=== PATIENT | male | born 1950 | race Caucasian/White ===

== ENCOUNTER → 2018-01-26 | Outpatient (CLI) | payer MEDICARE, BC ==
[2018-01-26] MEDS: IOHEXOL 180 MG/ML 10 ML VIAL. IJ (09:34)
== END | disposition home or self-care (01) ==
LOC: RAD 08:26
DX: M43.16 Spondylolisthesis, lumbar region (principal); I10 Essential (primary) hypertension
CPT/HCPCS: 72132; 72265; Q9965

== ENCOUNTER → 2018-02-01 | Outpatient (CLI) | payer MEDICARE, BC ==
[2018-02-01 16:04] LABS: ADD MAN DIFF? NO
[2018-02-01 16:08] LABS: BASO % 0 % (0-3); EOS % 1 % (0-3); HEMATOCRIT 44.8 % (39.0-53.0); HEMOGLOBIN 14.9 g/dL (13.0-17.5); LYMPH # 1.3 x10^3/uL (1.0-4.8); LYMPH % 17 % (24-48); MEAN CORPUSCULAR HEMOGLOBIN 33 pg (25-35); MEAN CORPUSCULAR HGB CONC 33 g/dL (31-37); MEAN CORPUSCULAR VOLUME 98 fL (79-100); MONO # 0.8 x10^3/uL (0.0-1.1); MONO % 11 % (0-9); NEUT # 5.4 x10^3uL (1.8-7.7); NEUT % 71 % (31-73); PLATELET COUNT 378 x10^3/uL (140-400); RED BLOOD COUNT 4.59 x10^6/uL (4.30-5.70); RED CELL DISTRIBUTION WIDTH 13.7 % (11.5-14.5); WHITE BLOOD COUNT 7.6 x10^3/uL (4.0-11.0)
[2018-02-01 16:15] LABS: PARTIAL THROMBOPLASTIN TIME 30 SEC (24-38); PROTHROMBIN TIME PATIENT 12.2 SEC (11.7-14.0)
[2018-02-01 16:28] LABS: ALBUMIN 3.8 g/dL (3.4-5.0); ALBUMIN/GLOBULIN RATIO 1.2 (1.0-1.7); ALK PHOS 70 U/L (46-116); ALT (SGPT) 29 U/L (16-63); ANION GAP 6 (6-14); AST (SGOT) 26 U/L (15-37); BLOOD UREA NITROGEN 31 mg/dL (8-26); BUN/CREATININE RATIO 31 (6-20); CALCIUM 9.4 mg/dL (8.5-10.1); CARBON DIOXIDE 33 mmol/L (21-32); CHLORIDE 102 mmol/L (98-107); GLUCOSE 115 mg/dL (70-99); POTASSIUM 4.2 mmol/L (3.5-5.1); SODIUM 141 mmol/L (136-145); TOTAL BILIRUBIN 0.3 mg/dL (0.2-1.0)
[2018-02-02 22:17] LABS: MRSA BY PCR Negative (Negative)
== END | disposition home or self-care (01) ==
LOC: SURGPAT 13:33
DX: Z01.818 Encounter for other preprocedural examination (principal); I10 Essential (primary) hypertension
CPT/HCPCS: 36415; 80053; 85025; 85610; 85730; 87641; 93005

== ENCOUNTER 2018-02-08 07:26 | Inpatient (IN) | payer MEDICARE, BC ==
[~2018-02-08 07:26] MED LIST: LIDOCAINE 1% PF 2 ML VIAL. ID; ONDANSETRON PF 4 MG/2 ML VIAL. IV; PROCHLORPERAZINE 10 MG/2 ML VIAL. IV; fentaNYL PF VIAL 100 MCG/2 ML VIAL IV
[2018-02-08] MEDS: IV RINGERS,LACTATED 1000ML 1,000 ML IV (08:04)
[2018-02-08] MEDS ORDERED: ROCURONIUM 50 MG/5 ML VIAL. (09:05)
[2018-02-08] MEDS ORDERED: SUCCINYLCHOLINE 200 MG/10 ML VIAL. (09:05)
[2018-02-08] MEDS ORDERED: LIDOCAINE 2% PF Vial for OR 5 ML VIAL. (09:05)
[2018-02-08] MEDS ORDERED: PROPOFOL 20 ML IV (09:05)
[2018-02-08] MEDS ORDERED: fentaNYL PF VIAL 100 MCG/2 ML VIAL ×2 (09:05→17:36)
[2018-02-08] MEDS ORDERED: PROPOFOL 50 ML IV ×3 (09:05→15:35)
[2018-02-08] MEDS ORDERED: REMIFENTANIL 2 MG VIAL. IV (09:05)
[2018-02-08] MEDS ORDERED: DEXAMETHASONE SOD PHOS 20 MG/5 ML VIAL. (11:30)
[2018-02-08] MEDS ORDERED: DESFLURANE > 120 MINUTES IH (11:30)
[2018-02-08] MEDS ORDERED: PHENYLEPHRINE in 0.9% NACL PF 1 MG/10 ML SYRINGE. IV (11:42)
[2018-02-08] MEDS ORDERED: ePHEDrine PF IN SALINE 50 MG/5 ML DISP.SYRIN IV (11:54)
[2018-02-08] MEDS: BACITRACIN 50,000 UNIT in IV NORMAL SALINE 1000ML BAG 1,000 ML IRR (12:17)
[2018-02-08] MEDS: BUPIVAC MPF-EPI 0.5%-1:200000 30 ML VIAL. INJ (12:17)
[2018-02-08] MEDS: GELATIN SPONGE SIZE 100. ×2 (12:17→16:52)
[2018-02-08] MEDS: KETOROLAC 60 MG/2 ML INJ FOR OR. (12:17)
[2018-02-08] MEDS: THROMBIN TOPICAL 20,000 UNIT SPRAY.SYRN KIT TP ×2 (12:17→16:52)
[2018-02-08] MEDS ORDERED: PHENYLEPHRINE 10 MG/ML VIAL. (12:45)
[2018-02-08] MEDS ORDERED: ONDANSETRON PF 4 MG/2 ML VIAL. (12:55)
[2018-02-08] MEDS ORDERED: MAG HYDROX/ALUMINUM HYD/SIMETH 30 ML ORAL.SUSP PO (14:15)
[2018-02-08] MEDS ORDERED: ACETAMINOPHEN 325 MG TABLET. PO (14:15)
[2018-02-08] MEDS ORDERED: ONDANSETRON PF 4 MG/2 ML VIAL. IV (14:15)
[2018-02-08] MEDS ORDERED: 0.9 % SODIUM CHLORIDE 10 ML DISP.SYRIN. IV (14:15)
[2018-02-08] MEDS ORDERED: diphenhydrAMINE HCL 25 MG CAPSULE PO (14:15)
[2018-02-08] MEDS ORDERED: diphenhydrAMINE 50 MG/ML VIAL IV (14:15)
[2018-02-08] MEDS ORDERED: MAGNESIUM HYDROXIDE 2,400 MG/30 ML ORAL.SUSP. PO (14:15)
[2018-02-08] MEDS ORDERED: CALCIUM CARBONATE 500 MG TAB.CHEW PO (14:15)
[2018-02-08] MEDS: buPROPion XL 150 MG TAB.ER.24H. PO (15:00)
[2018-02-08] MEDS: DULoxetine HCL 30 MG CAPSULE.DR PO (15:00)
[2018-02-08] MEDS: hydroCHLOROthiazide 12.5 MG CAPSULE PO (15:00)
[2018-02-08] MEDS: LISINOPRIL 20 MG TABLET PO (15:00)
[2018-02-08] MEDS ORDERED: REMIFENTANIL 1 MG VIAL. IV (15:17)
[2018-02-08] MEDS: CALCIUM CARB/VIT D3 500/200 TABLET. PO (17:00)
[2018-02-08] MEDS: oxyCODONE IR 5 MG TABLET PO ×3 (17:00→21:00)
[2018-02-08] MEDS ORDERED: MORPHINE SULFATE 4 MG/ML DISP.SYRIN. (17:36)
[2018-02-08] MEDS: fentaNYL PF VIAL 100 MCG/2 ML VIAL IV ×5 (17:40→23:23)
[2018-02-08] MEDS: MORPHINE SULFATE 4 MG/ML DISP.SYRIN. IV ×2 (17:48→18:15)
[2018-02-08] MEDS: METHOCARBAMOL 750 MG TABLET PO (21:09)
[2018-02-08] MEDS: DOCUSATE SODIUM 100 MG CAPSULE. PO (21:09)
[2018-02-08] MEDS: METOPROLOL TART IMMED RELEASE 50 MG TABLET. PO (21:11)
[2018-02-08] MEDS: SIMVASTATIN 20 MG TABLET PO (21:11)
[2018-02-08] MEDS ORDERED: ceFAZolin SODIUM 1 GM in IV DEXTROSE 5% 50 ML IV (22:00)
[2018-02-09] MEDS: ceFAZolin SODIUM IV Push 1 GM VIAL. IVP ×2 (00:43→08:40)
[2018-02-09] MEDS: oxyCODONE IR 5 MG TABLET PO ×3 (02:48→11:31)
[2018-02-09] MEDS: POTASSIUM CL 20MEQ D5-0.45NACL 1,000 ML IV ×2 (02:52→03:30)
[2018-02-09] MEDS: fentaNYL PF VIAL 100 MCG/2 ML VIAL IV (06:30)
[2018-02-09] MEDS: DOCUSATE SODIUM 100 MG CAPSULE. PO (08:33)
[2018-02-09] MEDS: METHOCARBAMOL 750 MG TABLET PO (08:33)
[2018-02-09] MEDS: CALCIUM CARB/VIT D3 500/200 TABLET. PO (08:33)
[2018-02-09] MEDS: DULoxetine HCL 30 MG CAPSULE.DR PO (08:33)
[2018-02-09] MEDS: METOPROLOL TART IMMED RELEASE 50 MG TABLET. PO (08:36)
[2018-02-09] MEDS: buPROPion XL 150 MG TAB.ER.24H. PO (08:37)
[2018-02-09] MEDS: hydroCHLOROthiazide 12.5 MG CAPSULE PO (08:39)
[2018-02-09] MEDS: LISINOPRIL 20 MG TABLET PO (08:40)
[2018-02-09] MEDS ORDERED: oxyCODONE IR 5 MG TABLET PO ×2 (12:00)
== END 2018-02-09 13:34 | disposition home or self-care (01) | DRG 455 ==
LOC: OPSVCIP 07:26 → 4 NORTH 18:45
PROC: 0SG00A0 Fusion of Lumbar Vertebral Joint with Interbody Fusion Device, Anterior Approach, Anterior Column, Open Approach (ICD-10-PCS; principal; 2018-02-08 11:11)
PROC: 0SG0071 Fusion of Lumbar Vertebral Joint with Autologous Tissue Substitute, Posterior Approach, Posterior Column, Open Approach (ICD-10-PCS; 2018-02-08 11:11)
PROC: 0SB20ZZ Excision of Lumbar Vertebral Disc, Open Approach (ICD-10-PCS; 2018-02-08 11:11)
PROC: 01NB0ZZ Release Lumbar Nerve, Open Approach (ICD-10-PCS; 2018-02-08 11:11)
PROC: 07DR3ZZ Extraction of Iliac Bone Marrow, Percutaneous Approach (ICD-10-PCS; 2018-02-08 11:11)
PROC: 4A11X4G Monitoring of Peripheral Nervous Electrical Activity, Intraoperative, External Approach (ICD-10-PCS; 2018-02-08 11:11)
DX: M48.062 Spinal stenosis, lumbar region with neurogenic claudication (principal); G89.29 Other chronic pain; I10 Essential (primary) hypertension; M43.16 Spondylolisthesis, lumbar region; M51.16 Intervertebral disc disorders with radiculopathy, lumbar region; M81.0 Age-related osteoporosis without current pathological fracture; Z82.0 Family history of epilepsy and other diseases of the nervous system; Z82.49 Family history of ischemic heart disease and other diseases of the circulatory system; Z83.3 Family history of diabetes mellitus; Z87.442 Personal history of urinary calculi; M19.90 Unspecified osteoarthritis, unspecified site; Z90.49 Acquired absence of other specified parts of digestive tract
CPT/HCPCS: 36415; 72131; 76000; 86850; 86900; 86901; 97116-GP; 97161-GP; A7015; C1713; G8978-CH-GP; G8979-CH-GP; G8980-CH-GP; J0330; J0690; J1100; J1885; J2270; J2370; J2405; J2704; J3010; J3490; J7030; J7120